=== PATIENT | male | born 1970 | race Caucasian/White ===

== ENCOUNTER 2022-03-01 12:51 | Outpatient (CLI) | payer OTHER, SELFPAY ==
[2022-03-01 17:28] LABS: Uric Acid* 8.9 mg/dL (2.2-8.4)
== END 2022-03-01 12:52 | disposition home or self-care (01) ==
LOC: LKVREF 12:52
PROVIDERS: PCP Family Medicine; Visit Provider Nurse Practitioner Family
DX: M10.9 Gout, unspecified (principal)
CPT/HCPCS: 84550

== ENCOUNTER 2022-03-29 08:58 | Outpatient (CLI) | payer OTHER, SELFPAY ==
[2022-03-29 13:45] LABS: Chloride* 104 mmol/L (96-114); Potassium* 3.9 mmol/L (3.6-5.1); Sodium* 136 mmol/L (135-149)
[2022-03-29 13:48] LABS: Blood Urea Nitrogen* 12 mg/dL (7-30); Calcium* 9.1 mg/dL (8.4-10.6); Carbon Dioxide* 26 mmol/L (20-32); Cholesterol* 179 mg/dL (90-199); Creatinine* 0.9 mg/dL (0.5-1.5); Estimated Glomerular Filt Rate 103 ml/min; Glucose* 106 mg/dL (60-115); Triglycerides* 353 mg/dL (40-149)
[2022-03-29 13:49] LABS: HDL Cholesterol* 47 mg/dL (>=40); LDL Cholesterol Calculated 61 mg/dL (<100)
[2022-03-29 14:18] LABS: PSA Screen* 0.74 ng/mL (0.10-4.00)
== END 2022-03-29 08:59 | disposition home or self-care (01) ==
LOC: LKVLAB 08:58
PROVIDERS: PCP Family Medicine; Visit Provider Family Medicine
DX: Z00.00 Encounter for general adult medical examination without abnormal findings (principal); E78.00 Pure hypercholesterolemia, unspecified; Z12.5 Encounter for screening for malignant neoplasm of prostate
CPT/HCPCS: 36415; 80048; 80061; 84153

== ENCOUNTER 2022-06-16 09:19 | Outpatient (CLI) | payer OTHER, SELFPAY ==
[2022-06-16 13:49] LABS: Uric Acid* 7.6 mg/dL (2.2-8.4)
== END 2022-06-16 09:20 | disposition home or self-care (01) ==
PROVIDERS: PCP Family Medicine; Visit Provider Family Medicine
DX: M10.9 Gout, unspecified (principal)
CPT/HCPCS: 84550

== ENCOUNTER 2023-09-27 08:18 | Outpatient (CLI) | payer BC, SELFPAY | END 2023-09-27 08:19 | disposition home or self-care (01) | LOC: NFLDREF 10-02 02:39 | PROVIDERS: PCP Family Medicine; Referring Provider Family Medicine; Visit Provider Family Medicine | DX: E78.1 Pure hyperglyceridemia (principal); M10.9 Gout, unspecified; E78.00 Pure hypercholesterolemia, unspecified; Z12.5 Encounter for screening for malignant neoplasm of prostate | CPT/HCPCS: 80053; 80061; 84550; G0103 ==